=== PATIENT | male | born 2005 | race Caucasian/White ===

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

== ENCOUNTER → 2025-02-11 16:20 | Outpatient (BNVA) | payer SELFPAY | DX: R07.89 Other chest pain (principal) | CPT/HCPCS: 71046 ==

== ENCOUNTER 2025-07-18 23:06 | Emergency (ER) | payer SELFPAY ==
[2025-07-18 23:07] VITALS: BP 127/74; PULSE 55; RESP 16; TEMP 36.8; O2SAT 100
--- NOTE | 2025-07-18 23:09 | XRR_ITS ---
PROCEDURE INFORMATION: Exam: XR Right Elbow Exam date and time: 07/18/2025 11:43 PM Age: 19 years old Clinical indication: Injury or trauma; Fall; Work related; Blunt trauma (contusions or hematomas); Elbow; Right; Additional info: Fall/inj TECHNIQUE: Imaging protocol: Radiologic exam of the right elbow. Views: 3 or more views. COMPARISON: No relevant prior studies available. FINDINGS: Bones/joints: Normal. Soft tissues: Normal. XR/XR elbow RT min 3V* [id number] IMPRESSION: No acute findings.
--- NOTE | 2025-07-19 00:13 | W.ED.EXTPRO ---
HPI - Extremity Problem General: Chief complaint: Extremity Injury, Upper Stated complaint: Rt. Elbow bruised and hurting fell Time Seen by Provider: 07/18/25 23:25 Source: patient Mode of arrival: ambulatory Limitations: no limitations History of Present Illness: Patient is a 19-year-old male who presents to the Emergency Department complaining of right elbow pain since Sunday. He states that he slipped on sawdust while at work, which caused him to fall back and bump his right elbow on a metal corner. States that it has steadily become more bruised, however has not been swollen and he has retained range of motion. No distal neurovascular symptoms reported. Only mild pain reported at this time, states he is just here to make sure nothing is broken. Has not taken any medications. MD Complaint: joint pain Onset (ago): day(s) Pain Consistency: constant Location: right and elbow Radiation: distal Associated symptoms: Deny chest pain, fever(s) or rash Related Data Allergies Allergy/AdvReac Type Severity Reaction Status Date / Time No Known Allergies Allergy Verified 02/11/25 16:03 Review of Systems General: Reports: 10 or more systems reviewed and unremarkable except in HPI and below Const: Denies: fever(s) or chills Card: Denies: chest pain Resp: Denies: dyspnea or productive cough GI: Denies: abdominal pain, nausea, vomiting or diarrhea : Denies: flank pain Musc: Reports: joint pain (rt elbow); Denies: neck pain, back pain, extremity pain, extremity swelling, joint swelling, joint redness, joint warmth, limited range of motion or muscle weakness Skin/Breast: Denies: rash Neuro: Denies: headache(s), numbness in extremities or weakness in extremities PFSH ED PFSH: Medical History Acute viral syndrome Tick bite of chest wall Hemorrhoid Social History Smoking and tobacco/nicotine status: current every day tobacco/nicotine user (vape) Physical Exam Const: COMMON NORMALS: no acute distress, patient oriented x3, no limitations, healthy appearing, alert and well nourished HENMT: COMMON NORMALS: normocephalic and atraumatic HEAD & SCALP: normocephalic and atraumatic Neck/C-Spine: COMMON NORMALS: full ROM, supple and no meningeal signs Resp: COMMON NORMALS: normal respiratory effort, No use of accessory muscles and clear to auscultation bilaterally AUSCULTATION: clear to auscultation bilaterally Cardio: COMMON NORMALS: regular rate and regular rhythm RATE: regular rate RHYTHM: regular rhythm Extremity: COMMON NORMALS: full ROM, capillary refill normal, no joint enlargement and no clubbing, cyanosis or edema NARRATIVE EXTREMITY EXAM: Ecchymosis to right olecranon, elbow is not significantly swollen. Mild tenderness to palpation. Full range of motion of the elbow. Distal neurovascular exam is normal. Neuro: COMMON NORMALS: patient oriented x3, moves all extremities, no focal motor deficits and no sensory deficits noted SENSORIUM/ORIENTATION: Yes alert MENINGEAL SIGNS: Yes no meningeal signs Skin: COMMON NORMALS: no rashes or lesions noted GENERAL SKIN EXAM: no rashes or lesions noted Course Vital Signs: Vital signs: Vital Signs Temperature 98.3 F 07/18/25 23:07 Pulse Rate 55 L 07/18/25 23:07 Respiratory Rate 16 07/18/25 23:07 Blood Pressure 127/74 07/18/25 23:07 Pulse Oximetry 100 07/18/25 23:07 Oxygen Delivery Me thod Room Air 07/18/25 23:07 MDM - Extremity (Nontraumatic) Medical Decision Making Patient presenting with injury to right elbow, which she suffered on Sunday. States was concerned of the amount of bruising, has still had range of motion been able to use the right arm. Neurovascular exam is normal, x-ray does not demonstrate any acute process. Discussed conservative measures to continue to take and he will be discharged at this time. Lab Data Radiology Impressions Elbow X-Ray 07/18/25 23:09 IMPRESSION: No acute findings. XR interpretation done by ED provider, pending radiology final review ED provider radiology interpretation(s): X-ray of right elbow does not demonstrate any acute fracture or dislocation. Discharge Plan Discharge Patient Disposition: Home Clinical Impression: Contusion of elbow, right Qualifiers: Encounter type: initial encounter Qualified Code(s): S50.01XA - Contusion of right elbow, initial encounter Condition: Stable Discharge Orders: Discharge ED (Routine); Ordered 07/19/25 Ordered By: Colin Brown Patient Instructions: Patient Portal & Emanuel Instructions Activity Restrictions/Additional Instructions: Elbow Contusion Discharge Diagnosis: Right elbow contusion. Radiographs negative for acute fracture or dislocation. Instructions: - Pain Management: - Use acetaminophen or NSAIDs (e.g., ibuprofen) as needed for pain control, following standard dosing guidelines and considering individual contraindications. NSAIDs are considered safe for soft tissue injuries and short-term use in this context. - Opioids are not recommended unless pain is severe and not controlled by acetaminophen or NSAIDs. - Activity and Mobilization: - Early gentle mobilization of the elbow is recommended to prevent stiffness and promote recovery. Avoid prolonged immobilization, as this may lead to poorer outcomes. - Gradually resume normal activities as tolerated. Avoid activities that cause significant pain or require high force through the elbow until symptoms improve. - If pain is severe, brief use of a sling for comfort may be considered, but prolonged use is discouraged. - Ice and Elevation: - Apply ice packs to the affected area for 15?20 minutes every 2?3 hours during the first 48 hours to reduce swelling. - Elevate the arm when possible to minimize swelling. - Monitoring and Follow-up: - Watch for increasing pain, swelling, redness, or inability to move the elbow, which may indicate a more serious injury or complication. - If symptoms persist beyond 7?10 days, or if new symptoms develop (e.g., inability to fully extend the elbow, persistent pain, or mechanical symptoms), re-evaluation is recommended. Repeat radiographs or advanced imaging may be indicated if clinical suspicion for occult fracture or soft tissue injury remains. - Rehabilitation: - Gentle [id number] exercises may be initiated as pain allows. Formal physical therapy is not routinely required for simple contusions but may be considered if recovery is delayed or functional deficits persist. - Return to Work/Sport: - Early return to normal activities and work is encouraged as tolerated. For athletes, a gradual return to sport-specific training should be implemented once pain and range of motion have normalized. Precautions: - Avoid high-impact or strenuous activities until full recovery. - Do not use corticosteroid injections for pain management in this region due to risk of tissue weakening. When to Seek Medical Attention: - Inability to fully extend the elbow after injury. - Persistent or worsening pain, swelling, or bruising. - Signs of infection (fever, redness, warmth). - Numbness, tingling, or weakness in the hand or arm. Summary: Most elbow contusions recover uneventfully with conservative management focused on pain control, early mobilization, and monitoring for complications. Early activity and education are associated with superior outcomes. If symptoms do not improve as expected, further evaluation may be warranted to rule out occult injury. Print Language: [place] Coding Level of Care Code ED Value Advisor for Tera Paiz
== END 2025-07-19 00:18 | disposition home or self-care (01) ==
PROVIDERS: Emergency Provider Physician Assistant
DX: S50.01XA Contusion of right elbow, initial encounter (principal); W01.118A Fall on same level from slipping, tripping and stumbling with subsequent striking against other sharp object, initial encounter
CPT/HCPCS: 73080; 99283; J9999

== ENCOUNTER 2025-08-17 12:09 | Emergency (ER) | payer SELFPAY ==
[2025-08-17 12:15] VITALS: BP 123/54; PULSE 67; RESP 20; TEMP 36.5; O2SAT 100
--- OUTSIDE RECORDS SUMMARY | 2025-08-17 12:17 | XMS_ITS | Patient Health Record ---
Author Organization [facility] Address [address] [place] [address] Support Name Relationship Address Phone Felipa Beauchamp Emergency Contact [address] [place] [address] eduarfelipa Guarantor Unknown [phone] Reason For Referral No Information Medications Medication SIG (Take, Route, Frequency, Duration) Notes Start Date End Date Status Oxiconazole Nitrate *please revi ew for potential update for e-prescription and drug interaction check* Active Vyvanse *please review f or potential update for e-prescription and drug interaction check* Active Zofran ODT 4 MG Tablet Dispersible 1 tablet on the tongue and allow to dissolve Orally every 8 hrs; Duration: 5 days *please review for potential update for e-prescription and drug interaction check* 01/07/2016 Active Social History Social History Additional Details Category Social Info Options Details zzMigrated Social History Migrated Social History Social History(Smoking(MU):):Smoki ng Status: Under age 12. Not applicable. ;Social History(Second-hand Smoke Exposure):yes Not in the house ; Plan Of Treatment No Information Medical (General) History Medical History History ICD Code ADHD Asthma
--- NOTE | 2025-08-17 12:22 | W.ED.URI ---
HPI - URI/Sore Throat General: Chief Complaint: Upper Respiratory Infection Stated Complaint: sick x2days Time Seen by Provider: 08/17/25 12:11 Source: patient Mode of arrival: ambulatory Limitations: no limitations History of Present Illness: Patient is a 19-year-old male who presents to ED today with complaint of rhinorrhea, cough, headache, diarrhea, sore throat over the past 3 days. 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 He has not had a fever. He reports some mild abdominal cramping prior to defecation. He is not currently having any discomfort. No bloody stools. MD elicited complaint: cough, sore throat and rhinorrhea Onset (ago): day(s) Consistency: constant Severity: mild Description of mucous: clear Able to tolerate fluids by mouth: Yes Exacerbating factors: nothing Relieving factors: nothing Context: sick contacts (several coworkers with similar symptoms) Associated symptoms: Reports diarrhea; Deny chills, chest pain, ear or mastoid pain, fever(s), headache(s), nasal congestion or sinus pain Treatments prior to arrival: none Related Data Allergies Allergy/AdvReac Type Severity Reaction Status Date / Time No Known Allergies Allergy Verified 02/11/25 16:03 Review of Systems Const: Denies: fever(s) or chills ENMT: Reports: throat pain and odynophagia; Denies: ear or mastoid pain, nasal discharge, nasal congestion or sinus pain Card: Denies: chest pain Resp: Reports: non-productive cough and chest congestion; Denies: dyspnea GI: Reports: diarrhea and GI cramping; Denies: hematemesis, hematochezia or melena : Denies: flank pain, dysuria or hematuria Musc: Denies: neck pain, back pain, extremity pain, extremity swelling, joint pain or joint swelling Skin/Breast: Denies: rash Neuro: Denies: headache(s), numbness in extremities, weakness in extremities, sensory changes, difficulty walking or dizziness [facility] ED PFSH: Medical History Acute viral syndrome Tick bite of chest wall Hemorrhoid Social History Smoking and tobacco/nicotine status: current every day tobacco/nicotine user (vape) Physical Exam Const: COMMON NORMALS: no acute distress, average body habitus, patient oriented x3, no limitations, healthy appearing, alert and well nourished GENERAL APPEARANCE: cooperative ORIENTATION/CONSCIOUSNESS: Yes awake, Yes oriented to person, Yes oriented to place and Yes oriented to time HENMT: COMMON NORMALS: normocephalic, atraumatic, hearing grossly normal bilaterally, external ears normal, EAC's normal, TM's normal bilaterally, Normal external nose present, Normal nasal mucous membranes and turbinates present, moist oral mucous membranes and oropharynx normal HEAD & SCALP: normal to inspection, normocephalic and atraumatic FACE & SINUS: normal facial exam and sinuses nontender NOSE: Normal external nose present and Normal nasal mucous membranes and turbinates present EXTERNAL EAR: Yes external ears normal EXTERNAL AUDITORY CANAL: EAC's normal TYMPANIC MEMBRANE: TM's normal bilaterally MOUTH: Normal oral and palatal mucosa present, lip normal, tongue normal and Normal salivary glands and ducts present THROAT: posterior oropharynx normal, tonsils normal and uvula midline Eye: COMMON NORMALS: Equal, round and reactive pupils present, EOMs intact bilaterally and conjunctivae normal CONJUNCTIVA: Yes conjunctivae normal PUPIL: Yes Equal, round and reactive pupils present Neck/C-Spine: COMMON NORMALS: no lymphadenopathy Resp: COMMON NORMALS: normal respiratory effort and clear to auscultation bilaterally AUSCULTATION: clear to auscultation bilaterally Cardio: COMMON NORMALS: regular rate and regular rhythm RATE: regular rate RHYTHM: regular rhythm GI: COMMON NORMALS: Normal to inspection, nondistended, normoactive bowel sounds present, Soft to palpation, non-tender, No hepatosplenomegaly present and no masses PALPATION: Yes Soft to palpation and Yes No hepatosplenomegaly present Extremity: GENERAL: Yes normal exam except as noted Neuro: COMMON NORMALS: patient oriented x3, moves all extremities, no focal motor deficits, no sensory deficits noted and gait normal SENSORIUM/ORIENTATION: Yes alert, Yes oriented to person, Yes oriented to place and Yes oriented to time Skin: COMMON NORMALS: no rashes or lesions noted GENERAL SKIN EXAM: no rashes or lesions noted Course Vital Signs: Vital signs: Vital Signs Temperature 97.7 F 08/17/25 12:15 Pulse Rate 69 08/17/25 13:12 Respiratory Rate 17 08/17/25 13:12 Blood Pressure 123/54 08/17/25 13:12 Pulse Oximetry 100 08/17/25 13:12 Oxygen Delivery Me thod Room Air 08/17/25 12:15 MDM - URI/Sore Throat Medical Decision Making Patient clinically appears in no acute distress. His vital signs are stable. Given his history, I suspect this is viral. COVID/flu/RSV swab obtained and pending at time of discharge. Will contact with positive results. Discussed conservative therapies. Return to ED precautions discussed. Differential Diagnosis Likely upper respiratory infection, viral infection and bronchitis Medical Records I reviewed the patient's medical records. No radiology studies performed this visit Discharge Plan Discharge Patient Disposition: Home Clinical Impression: Acute viral syndrome Condition: Stable Discharge Orders: Discharge ED (Routine); Ordered 08/17/25 Ordered By: Myrna Ruiz Patient Instructions: Patient Portal & Emanuel Instructions Activity Restrictions/Additional Instructions: As we discussed, symptoms are sounding viral at this time. Recommended conservative treatment. Swab for influenza/COVID/RSV was obtained and pending at time of discharge. You will be contacted if anything on this comes back positive. 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
[2025-08-17 13:12] VITALS: BP 123/54; PULSE 69; RESP 17; O2SAT 100
[2025-08-17 13:46] LABS: Respiratory Syncytial Virus Ce NEGATIVE (Negative)
[2025-08-17 13:54] LABS: SARS-CoV-2 PCR Positive (Negative)
== END 2025-08-17 13:13 | disposition home or self-care (01) ==
PROVIDERS: Emergency Provider Physician Assistant
DX: B34.9 Viral infection, unspecified (principal)
CPT/HCPCS: 87637; 99283

== ENCOUNTER 2025-09-08 20:33 | Emergency (ER) | payer OTHER, SELFPAY ==
[2025-09-08 20:40] VITALS: BP 130/78; PULSE 87; RESP 17; TEMP 36.7; O2SAT 97; BMI 18.9
--- OUTSIDE RECORDS SUMMARY | 2025-09-08 20:55 | XMS_ITS | Patient Health Record ---
Author Organization [facility] Address [address] [place] [address] Support Name Relationship Address Phone Felipa Beauchamp Emergency Contact [address] [place] [address] eduarfelipa Guarantor Unknown [phone] Reason For Referral No Information Medications [...]
--- NOTE | 2025-09-08 21:02 | XRR_ITS ---
PROCEDURE INFORMATION: Exam: XR Right Knee Exam date and time: 09/08/2025 9:07 PM Age: 19 years old Clinical indication: Pain; Knee; Right; Prior surgery; Surgery date: 6+ months; Surgery type: RT acl; Additional info: Knee pain TECHNIQUE: Imaging protocol: Radiologic exam of the right knee. Views: 3 views. COMPARISON: CR XR knees AP WB w RT lmt ORTH 08/03/2023 10:40 AM FINDINGS: Bones/joints: Patient is status post ACL reconstructive procedure. There is no acute fracture or dislocation. No significant joint effusion or advanced degenerative changes noted. Soft tissues: Normal. XR/XR knee RT 3V* [id number] IMPRESSION: No fracture or findings to suggest significant advanced degenerative changes or joint effusion
--- NOTE | 2025-09-08 21:04 | W.ED.EXTPRO ---
HPI - Extremity Problem General: Chief complaint: Extremity Problem,Nontraumatic Stated complaint: Prior surgery Rt Knee pain Time Seen by Provider: 09/08/25 21:01 History of Present Illness: 19yo M w/cc of acute on chronic knee pain. Patient states that in 2019, he had a surgery on his right knee to repair his meniscus. He states that for the past several weeks, his knee has been hurting more. 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 He denies a fever, chills, malaise, joint redness, significant swelling, decrease in ROM, joint warmth. He continues to be amubatory. Related Data Allergies Allergy/AdvReac Type Severity Reaction Status Date / Time No Known Allergies Allergy Verified 02/11/25 16:03 [facility] ED PFS: Medical History (Updated 09/08/25 @ 21:57 by Esther Martin MD) Acute viral syndrome Tick bite of chest wall Hemorrhoid Social History Smoking and tobacco/nicotine status: current every day tobacco/nicotine user (vape) Physical Exam Narrative: EXAM NARRATIVE: Vital signs were reviewed. Patient is alert and oriented. Patient is breathing comfortably, no increased WOB or accessory muscle use. SpO2 is above 95% on RA. No hypotension or tachycardia. Knees appear symmetric. There is no significant swelling to the right knee. There is no right knee warmth, redness. Patient can fully flex his right knee and can bear weight. There is no calf asymmetry, tenderness and he has +2 DP and PT pulses. Extensor mechanism is intact. Patient has diffuse pain with palpation of the right knee joint. Course Vital Signs: Vital signs: Vital Signs Temperature 98.1 F 09/08/25 20:40 Pulse Rate 87 09/08/25 20:40 Respiratory Rate 17 09/08/25 20:40 Blood Pressure 130/78 09/08/25 20:40 Pulse Oximetry 97 09/08/25 20:40 Oxygen Delivery Me thod Room Air 09/08/25 20:40 MDM - Extremity (Nontraumatic) Medical Decision Making Patient is a 19-year-old male presenting with a chief complaint of acute on chronic right knee pain. He has repetitive stress to his right knee due to work. Differential diagnosis includes, but is not limited to, fracture, dislocation, sprain, ligament tear, contusion, overuse injury. hematoma/ecchymosis, infected joint, other. Patient was evaluated with x-rays which I personally reviewed and interpreted and shows no fracture or dislocation. Clinically, he does not appear to have septic arthritis. He is appropriate for further outpatient w/u, supportive care at home. Patient was given return precautions and discharged in stable condition. Lab Data Radiology Impressions Knee X-Ray 09/08/25 21:02 IMPRESSION: No fracture or findings to suggest significant advanced degenerative changes or joint effusion XR interpretation done by ED provider, pending radiology final review Discharge Plan Discharge Patient Disposition: Home Clinical Impression: Chronic knee pain Qualifiers: Laterality: right Qualified Code(s): M25.561 - Pain in right knee Condition: Stable Discharge Orders: Discharge ED (Routine); Ordered 09/08/25 Ordered By: Esther Martin Patient Instructions: Knee Pain (ED), Opioid Safety, Pain Management, Patient Portal & Emanuel Instructions Activity Restrictions/Additional Instructions: Please continue to monitor your condition closely at home. Take Ibuprofen 400mg and Tylenol 500-1000mg every six hours for pain and inflammation. If your condition worsens or additional concerns arise, please return promptly to the emergency department for reassessment. Follow up with your primary care doctor in one to two weeks. If you continue to have significant pain, talk to your doctor about outpatient MRI to better evaluate knee ligaments. Your doctor can also help you with a referral to an orthopaedic specialist, if needed. Print Language: Macedonian Coding Level of Care Code ED Quality Director for Tera Paiz
== END 2025-09-08 22:05 | disposition home or self-care (01) ==
PROVIDERS: Emergency Provider Emergency Medicine
DX: M25.561 Pain in right knee (principal)
CPT/HCPCS: 73562; 99283

== ENCOUNTER 2025-10-30 19:06 | Emergency (ER) | payer SELFPAY ==
[2025-10-30 19:14] VITALS: BP 116/73; PULSE 80; RESP 17; TEMP 36.7; O2SAT 95; BMI 19.3
--- NOTE | 2025-10-30 19:26 | ED_ITS ---
HPI - Nausea/Vomiting/Diarrhea 2 General: Chief complaint: Nausea/Vomiting/Diarrhea Stated complaint: sick cough v/n/d headache Time Seen by Provider: 10/30/25 19:10 History of Present Illness: Patient is a 19-year-old gentleman without medical issues that presents to the ED due to nausea vomiting diarrhea x 3 days. Patient states ongoing. He has not been to the doctor. No sick contact. He has not had any fevers. He does not drink alcohol, and is recovering alcoholic and alcoholic synonymous. No cough, no recent illness. Associated nausea: Yes Associated symtoms: Reports nausea; Denies anxiety, chest pain, dizziness, dysuria or headache(s) Related Data Previous Rx's ?Medication ?Instructions ?Recorded ondansetron 4 mg disintegrating 4 mg PO Q8H PRN nausea and 10/30/25 tablet vomiting 4 days #14 tabs Allergies Allergy/AdvReac Type Severity Reaction Status Date / Time No Known Allergies Allergy Verified 02/11/25 16:03 Review of Systems 2 Const: Denies: fever(s) or chills ENMT: Reports: odynophagia; Denies: throat pain, ear or mastoid pain, nasal discharge, nasal congestion or sinus pain Card: Denies: chest pain Resp: Reports: non-productive cough and chest congestion; Denies: dyspnea GI: Reports: nausea, vomiting, diarrhea and GI cramping; Denies: hematemesis, dysphagia, hematochezia or melena : Denies: flank pain, dysuria or hematuria Musc: Denies: neck pain, back pain, extremity pain, extremity swelling, joint pain or joint swelling Skin/Breast: Denies: rash Neuro: Denies: headache(s), numbness in extremities, weakness in extremities, sensory changes, difficulty walking or dizziness Psych: Denies: anxiety or depression PFSH ED 2 PFSH: Medical History (Updated 10/30/25 @ 20:06 by YOBANI Rubio) Acute viral syndrome Tick bite of chest wall Hemorrhoid Social History Smoking and tobacco/nicotine status: current every day tobacco/nicotine user (vape) Physical Exam 2 Const: COMMON NORMALS: no acute distress, average body habitus and patient oriented x3 HENMT: COMMON NORMALS: normocephalic, atraumatic and hearing grossly normal bilaterally HEAD & SCALP: normocephalic and atraumatic Neck/C-Spine: COMMON NORMALS: full ROM, no lymphadenopathy, supple and no meningeal signs Lymph: LYMPHATIC: no lymphadenopathy noted Chest: COMMONS NORMALS: normal inspection of the chest and normal palpation of entire chest wall Resp: COMMON NORMALS: normal respiratory effort, No retractions, No use of accessory muscles and clear to auscultation bilaterally AUSCULTATION: clear to auscultation bilaterally Cardio: COMMON NORMALS: regular rate and regular rhythm RATE: regular rate RHYTHM: regular rhythm GI: COMMON NORMALS: Normal to inspection, nondistended, normoactive bowel sounds present, Soft to palpation, non-tender and No hepatosplenomegaly present PALPATION: Yes Soft to palpation and Yes No hepatosplenomegaly present : COMMON NORMALS: Yes no CVA tenderness BLADDER/KIDNEY EXAM: Yes no CVA tenderness Back/Pelvis: COMMON NORMALS: no CVA tenderness Extremity: COMMON NORMALS: normal to inspection, full ROM and capillary refill normal Neuro: COMMON NORMALS: patient oriented x3 MENINGEAL SIGNS: Yes no meningeal signs Course 2 Consultations: Consultation #1: Doing better Vital Signs: Vital signs: Vital Signs Temperature 98.1 F 10/30/25 19:14 Pulse Rate 78 10/30/25 20:28 Respiratory Rate 17 10/30/25 19:14 Blood Pressure 116/73 10/30/25 19:14 Pulse Oximetry 100 10/30/25 20:28 Oxygen Delivery Me thod Room Air 10/30/25 19:14 MDM - Nausea/Vomiting/Diarrhea Medical Decision Making Patient is a 19-year-old gentleman without medical history that presents with nausea, vomiting, diarrhea for 3 days. He tolerated Zofran by mouth, and oral trial. This is most likely associated with gastritis. No McBurney's point, no Rovsing's, no psoas on exam. Plan is to discharge home on Zofran and clear liquid diet. Went over all of this with the patient as well. Medical Records I reviewed the patient's medical records. Lab Data I reviewed the patient's lab results. 10/30/25 19:46 10/30/25 19:46 Laboratory Results WBC 6.96 10^3/uL (4.5-13.0) 10/30/25 19:46 RBC 4.56 10^6/uL (3.85-5.65) 10/30/25 19:46 Hgb 14.00 g/dL (13.2-15.6) 10/30/25 19:46 Hct 40.9 % (37-53) 10/30/25 19:46 MCV 89.7 fl (82-101) 10/30/25 19:46 MCH 30.7 pg (27-33) 10/30/25 19:46 MCHC 34.2 g/dL (30-55) 10/30/25 19:46 RDW 11.3 % (12.1-15.1) L 10/30/25 19:46 Plt Count 187 10^3/cmm (157-399) 10/30/25 19:46 MPV 10.5 fL (7.4-10.4) H 10/30/25 19:46 Neut % (Auto) 67.6 % 10/30/25 19:46 Lymph % (Auto) 21.1 % 10/30/25 19:46 [place] % (Auto) 9.5 % 10/30/25 19:46 Eos % (Auto) 1.6 % 10/30/25 19:46 Baso % (Auto) 0.1 % 10/30/25 19:46 Neut # (Auto) 4.70 10^3/uL (1.8-8.0) 10/30/25 19:46 Lymph # (Auto) 1.5 10^3/uL (1.5-6.5) 10/30/25 19:46 [place] # (Auto) 0.7 10^3/uL (0.2-0.9) 10/30/25 19:46 Eos # (Auto) 0.1 10^3/uL (0.0-0.8) 10/30/25 19:46 Baso # (Auto) 0.0 10^3/uL (0.0-0.1) 10/30/25 19:46 Nucleated RBC % (auto) 0 % 10/30/25 19:46 Nucleated RBCs # 0.0 /100WBC 10/30/25 19:46 Sodium 144 mmol/L (136-145) 10/30/25 19:46 Potassium 3.8 mmol/L (3.5-5.1) 10/30/25 19:46 Chloride 107 mmol/L (98-107) 10/30/25 19:46 Carbon Dioxide 26 mmol/L (22-29) 10/30/25 19:46 Anion Gap 14.8 (5-19) 10/30/25 19:46 BUN 14 mg/dL (6-20) 10/30/25 19:46 Creatinine 0.7 mg/dL (0.7-1.2) 10/30/25 19:46 GFR Calculation 143.8 mL/min (90-130) H 10/30/25 19:46 Glucose 110 mg/dL (65-115) 10/30/25 19:46 Calculated Osmolality 299 mOsm/kg (285-295) H 10/30/25 19:46 Calcium 8.9 mg/dL (8.5-10.5) 10/30/25 19:46 Total Bilirubin 0.6 mg/dL (0.15-1.2) 10/30/25 19:46 AST 42 U/L (0-40) H 10/30/25 19:46 ALT 110 U/L (0-41) H 10/30/25 19:46 Alkaline Phosphatase 74 U/L (40-130) 10/30/25 19:46 Total Protein 6.6 g/dL (6.6-8.7) 10/30/25 19:46 Albumin 4.2 g/dL (3.5-5.2) 10/30/25 19:46 Globulin 2.4 g/dL (1.3-4.6) 10/30/25 19:46 Lipase 17 U/L (13-60) 10/30/25 19:46 Urine Color Yellow (Yellow) 10/30/25 19:34 Urine Appearance Clear (CLEAR) 10/30/25 19:34 Urine pH 6.5 (5-7) 10/30/25 19:34 Ur Specific [place] 1.022 (1.005-1.030) 10/30/25 19:34 Urine Protein 1+ (Negative) A 10/30/25 19:34 Urine Glucose (UA) Negative (Normal) 10/30/25 19:34 Urine Ketones Negative (Negative) 10/30/25 19:34 Urine Blood Negative (Negative) 10/30/25 19:34 Urine Nitrate Negative (Negative) 10/30/25 19:34 Urine Bilirubin Negative (Negative) 10/30/25 19:34 Urine Urobilinogen 1.0 mg/dL (Negative) 10/30/25 19:34 Ur Leukocyte Esterase Negative (Negative) 10/30/25 19:34 Urine RBC 0-2 /hpf (0-2) 10/30/25 19:34 Urine WBC 0-5 /hpf (0-5) 10/30/25 19:34 Ur Squamous Epith Cells 0-5 /hpf (0-5) 10/30/25 19:34 Amorphous Sediment Not Reportable 10/30/25 19:34 Urine Bacteria None seen /hpf (NONE) 10/30/25 19:34 Hyaline Casts 0-4 /lpf H 10/30/25 19:34 No radiology studies performed this visit Discharge Plan Discharge Patient Disposition: Home Clinical Impression: Gastroenteritis Condition: Stable Prescriptions: New ondansetron 4 mg tablet,disintegrating 4 mg PO Q8H PRN (Reason: nausea and vomiting) 4 Days Qty: 14 0RF Discharge Orders: Discharge ED (Routine); Ordered 10/30/25 Ordered By: Delia Ham Discharge Diet: Clear Liquid Patient Instructions: Acute Nausea and Vomiting (ED), Patient Portal & Emanuel Instructions Activity Restrictions/Additional Instructions: - Clear liquid diet only for 24 hours then may advance to full liquid if you tolerate - At the pharmacy: [facility] - Return to ED if you have ongoing nausea, vomiting, fever greater than 100.4 ?F, uncontrolled diarrhea Thank you for choosing [facility] for your healthcare needs today. You have been screened and evaluated and felt safe for discharge. Health conditions do change or evolve sometimes and as such it is important that you follow up with your Primary Doctor to be re checked, 3-5 days is a general good time frame for follow up. You are always welcome to return to the ED for re assessment if your symptoms are worsening or you have new concerns Stand Alone Forms: Work/School Release Print Language: Mohawk Coding Level of Care Code ED Sample Tester for Tera Paiz
[2025-10-30] MEDS: ondansetron hcl ODT 4 mg Tab PO ×2 (19:32→20:20)
[2025-10-30 19:47] LABS: Glucose Urine UA Negative (Normal); Nitrate Urine Negative (Negative); Specific Gravity, Urine 1.022 (1.005-1.030)
[2025-10-30 19:52] LABS: Add Urine Microscopic? YES
[2025-10-30 19:52] LABS: Hematocrit 40.9 % (37-53); Hemoglobin 14.00 g/dL (13.2-15.6); Mean Corpuscular HGB Conc 34.2 g/dL (30-55); Mean Corpuscular Hemoglobin 30.7 pg (27-33); Mean Corpuscular Volume 89.7 fl (82-101); Nucleated Red Blood Cells % 0 %; Platelet Count 187 10^3/cmm (157-399); Red Blood Count 4.56 10^6/uL (3.85-5.65); White Blood Count 6.96 10^3/uL (4.5-13.0)
[2025-10-30 20:14] LABS: Alanine Aminotransferase 110 U/L (0-41); Albumin Level 4.2 g/dL (3.5-5.2); Alkaline Phosphatase 74 U/L (40-130); Anion Gap 14.8 (5-19); Aspartate Amino Transferase 42 U/L (0-40); Blood Urea Nitrogen 14 mg/dL (6-20); Calcium 8.9 mg/dL (8.5-10.5); Carbon Dioxide 26 mmol/L (22-29); Chloride 107 mmol/L (98-107); Globulin 2.4 g/dL (1.3-4.6); Glucose 110 mg/dL (65-115); Lipase 17 U/L (13-60); Osmolality Calculated 299 mOsm/kg (285-295); Potassium 3.8 mmol/L (3.5-5.1); Sodium 144 mmol/L (136-145); Total Protein 6.6 g/dL (6.6-8.7)
[2025-10-30 20:28] VITALS: PULSE 78; O2SAT 100
== END 2025-10-30 20:29 | disposition home or self-care (01) ==
PROVIDERS: Emergency Provider Physician Assistant
DX: K52.9 Noninfective gastroenteritis and colitis, unspecified (principal); F17.290 Nicotine dependence, other tobacco product, uncomplicated
CPT/HCPCS: 36415; 80053; 81001; 83690; 85025; 99283; Q0162